=== PATIENT | female | born 1935 | race African-American/Black ===

== ENCOUNTER 2018-07-15 07:54 | Emergency (ER) | payer BC, OTHER ==
[2018-07-15 08:01] VITALS: PULSE 78; TEMP 98.2; BMI 25.0
[2018-07-15 08:02] VITALS: BP 164/89
--- NOTE | 2018-07-15 08:40 | PDOC ---
History of Present Illness - General Chief Complaint: Bleeding from Anus Stated Complaint: PAIN Time Seen by Provider: 07/15/18 08:39 Past History - Past Medical History Allergies/Adverse Reactions: Allergies Allergy/AdvReac Type Severity Reaction Status Date / Time No Known Allergies Allergy Verified 07/15/18 09:23 Home Medications: Ambulatory Orders Unobtainable 07/15/18 COPD: No - Immunization History Immunization Up to Date: Yes - Suicide/Smoking/Psychosocial Hx Smoking History: Never smoked Information on smoking cessation initiated: No Hx Alcohol Use: No Drug/Substance Use Hx: No Substance Use Type: None *Physical Exam - Vital Signs Last Vital Signs Temp Pulse Resp BP Pulse Ox 98.2 F 78 16 164/89 99 07/15/18 07:59 07/15/18 07:59 07/15/18 07:59 07/15/18 07:59 07/15/18 07:59 ED Treatment Course - LABORATORY CBC & Chemistry Diagram: 07/15/18 09:00 07/15/18 09:00 *DC/Admit/Observation/Transfer Diagnosis at time of Disposition: Hemorrhoidal skin tag - Discharge Dispostion Disposition: HOME Condition at time of disposition: Stable Decision to Admit order: No - Referrals Referrals: Hayley Aguirre [Non Staff, Medical] - 1 week - Patient Instructions Printed Discharge Instructions: DI for Rectal Bleeding Additional Instructions: Your blood work was normal today. I did not see any bleeding from your bottom. Follow up with your primary care physician within the next 3-4 days. You will need to call to make an appointment. Take your home medications as instructed. No change was made in your medications today. Go to the nearest emergency department if your condition worsens or you feel like you need additional emergency evaluation. Print Language: [email or web address] - Post Discharge Activity
[2018-07-15 09:56] LABS: BASO % 0.6 % (0-2.0); EOS % 0.9 % (0-4.5); HEMATOCRIT 42.4 % (32.4-45.2); HEMOGLOBIN 13.4 GM/dL (10.7-15.3); LYMPH % 43.6 % (8-40); MCH 26.7 pg (25.7-33.7); MCHC 31.7 g/dl (32.0-36.0); MEAN CELL VOLUME 84.2 fl (80-96); MEAN PLT VOLUME 7.7 fl (7.5-11.1); MONO % 9.2 % (3.8-10.2); NEUT % 45.7 % (42.8-82.8); PLATELET COUNT 180 K/MM3 (134-434); RBC 5.03 M/mm3 (3.60-5.2); RDW 14.3 % (11.6-15.6); WHITE BLOOD COUNT 5.5 K/mm3 (4.0-10.0)
[2018-07-15 10:08] LABS: INR 1.17 (0.83-1.09); PROTHROMBIN TIME (PATIENT) 13.8 SEC (9.7-13.0)
[2018-07-15 10:11] LABS: ACTIVATED PTT 28.8 SECONDS (25.2-36.5)
[2018-07-15 10:38] LABS: ALBUMIN 3.6 g/dl (3.4-5.0); ALK PHOS 79 U/L (45-117); ANION GAP 9 MMOL/L (8-16); BILIRUBIN,TOTAL 1.1 mg/dL (0.2-1); BLOOD UREA NITROGEN 13 mg/dL (7-18); CALCIUM 8.8 mg/dL (8.5-10.1); CHLORIDE 108 mmol/L (98-107); CO2 28 mmol/L (21-32); CREATININE 0.9 mg/dL (0.55-1.3); GLUCOSE,RANDOM 106 mg/dL (74-106); POTASSIUM 4.1 mmol/L (3.5-5.1); SGOT/AST 15 U/L (15-37); SGPT/ALT 20 U/L (13-61); SODIUM 144 mmol/L (136-145); TOT PROT 7.1 g/dl (6.4-8.2)
== END 2018-07-15 11:40 | disposition home or self-care (01) ==
LOC: JER 07:54
DX: K64.4 Residual hemorrhoidal skin tags (principal)
CPT/HCPCS: 36415; 80053; 82272; 85025; 85610; 85730; 86850; 86900; 86901; 99282-25